=== PATIENT | female | born 2000 | race Caucasian/White ===

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

== ENCOUNTER → 2022-08-28 | Outpatient (CLI) | payer BC ==
[~2022-08-28] MED LIST: BACDST PO; PHEN200T16 PO
== END | disposition home or self-care (01) ==
LOC: LAB 10:31
PROVIDERS: ATTEND Obstetrics & Gynecology
DX: N39.0 Urinary tract infection, site not specified (principal); Z20.2 Contact with and (suspected) exposure to infections with a predominantly sexual mode of transmission
CPT/HCPCS: 36415; 84702; 87086

== ENCOUNTER 2022-08-29 12:59 | Emergency (ER) | payer BC ==
[~2022-08-29] VITALS: Ht 162.6 cm; Wt 73.0 kg
[2022-08-29 14:30] VITALS: BP 131/68
[2022-08-29 15:08] LABS: Urine Bacteria FEW /hpf (None Seen); Urine Blood Negative /uL (Negative); Urine Specific Gravity 1.003 (1.001-1.035); Urine WBC 2 /hpf (0 - 5)
[2022-08-29] MEDS ORDERED: PHEN200T16 PO (16:13)
[2022-08-29] MEDS ORDERED: BACDST PO (16:13)
== END 2022-08-29 16:15 | disposition home or self-care (01) ==
LOC: ER 13:03
DX: N39.0 Urinary tract infection, site not specified (principal)
CPT/HCPCS: 76856; 81001; 81025